=== PATIENT | male | born 1960 | race Caucasian/White ===

== ENCOUNTER 2023-11-28 23:04 | Inpatient (IN) | payer BC, MEDICARE, SELFPAY ==
[2023-11-28 20:05] VITALS: BP 135/87
[2023-11-28 20:19] LABS: % Basophils 0.5 % (0-2); % Eosinophils 1.7 % (0-6); % Immature Granulocytes 0.3 % (0-0.5); % Lymphocytes 18.3 % (20.5-51.1); % Neutrophils 71.2 % (42.2-75.2); Absolute Eosinophils 0.1 10^3/uL (0-0.7); Absolute Lymphocytes 1.4 10^3/uL (1.2-3.4); Absolute Monocytes 0.6 10^3/uL (0.1-0.6); Absolute Neutrophils 5.5 10^3/uL (1.4-6.5); Hematocrit 46.6 % (39.0-52.0); Hemoglobin 16.2 g/dL (13.0-18.0); Mean Corp Hgb Conc. 34.8 g/dL (33.0-37.0); Mean Corpuscular Hgb 28.9 pg (27.0-31.0); Mean Corpuscular Volume 83.2 fL (80.0-94.0); Mean Platelet Volume 9.2 fL (7.4-10.4); Nucleated Red Blood Cells % 0 % (-); Platelet Count 191 10^3/uL (130-400); Red Cell Dist. Width 13.2 % (11.5-14.5); White Blood Cell Count 7.7 10^3/uL (4.8-10.8)
[2023-11-28 20:32] LABS: INR 1.05; PT 13.5 Sec (11.4-14.6)
[2023-11-28 20:40] LABS: ALT (SGPT) 11 U/L (0-50); AST (SGOT) 28 U/L (17-59); Albumin 4.7 g/dl (3.5-5.0); Alkaline Phosphatase 48 U/L (38-126); Blood Urea Nitrogen 22 mg/dl (9-20); Calcium 9.9 mg/dl (8.4-10.2); Carbon Dioxide 27 mmol/L (22-30); Chloride 103 mmol/L (98-107); Glucose 111 mg/dl (70-99); Sodium 142 mmol/L (135-145); Total Bilirubin 1.6 mg/dl (0.2-1.3); Total Protein 7.4 g/dl (6.3-8.2); eGFR > 60.00
--- NOTE | 2023-11-28 20:44 | ED.GENMED ---
History of Present Illness
General
Chief Complaint: Chest Pain
Source: patient
Time Seen by Provider: 11/28/23 20:34
History of Present Illness
History of Present Illness:
63yoM with a history of hypertension and Parkinson's disease presenting for evaluation of chest pain. Symptoms initially began 2 days ago while he was on the treadmill. Patient reports a 'tremendous burning pain' in the center of his chest which
radiates up into the neck. Symptoms are associated with dyspnea and mild diaphoresis. Symptoms resolved about 10 minutes after activity is stopped. He has been on the treadmill each day since and has had recurrent pain each time. Patient was
having chest discomfort just walking up the steps and while in the shower today which prompted him to come to the ED. He is currently asymptomatic. Patient's father has a history of coronary artery disease and underwent CABG in his 50s.
Phy Exam
General Physical Exam
General Presentation: well appearing and no apparent distress
General age: appears stated age
General Skin: warm and dry
General Habitus: normal
General Mental: alert
Cardiovascular Exam
Cardiovascular Exam: regular rate/rhythm, no edema and normal peripheral pulses (2+ radial pulses bilaterally)
Pulmonary Exam
Pulmonary Exam: lungs clear, no respiratory distress, no crackles and no wheezing
[place] Coma Scale
Eye Opening: Spontaneous
Verbal Response: Oriented
Motor Response: Obeys Commands
GCS Total Score: 15
Skin Exam
Skin Exam: normal color and warm/dry
Psychiatric Exam
Psychiatric Exam: normal mood/affect
Scores
Heart Score for Chest Pain Patients
STEMI patient?: Not applicable
Course
Orders/Labs/Results
Orders:
Orders
11/28/23 19:54
EKG [Electrocardiogram (*1)] Urgent
Reason for Study: Chest Pain
11/28/23 20:12
Complete Blood Count/With Diff Urgent
Comprehensive Metabolic Panel Urgent
Prothrombin Time Urgent
Troponin I Urgent
11/28/23 20:43
CR Chest - 2 Views Urgent
Comment:
Reason For Exam: CP
11/28/23 22:25
Admit/Transfer Patient As Directed
Co-Sign Provider:
Level of Care: Inpatient admission
Assign to:: Telemetry
Physician / Group: Htay
Diagnosis: Chest Pain
Reason for Telemetry: Chest Pain syndromes
Date to Stop Telemetry: 11/30/23
Time to Stop Telemetry: 11:00
Reason for Hospitalization: heparin drip, chest pain work up
Expected length of stay greater than two midnights?: Yes
ELOS- Estimated Length of Stay in days: 2
I certify the patient meets the requirements for IP care: Yes
PRN Pain Medication Management As Directed
May give lesser potent ordered pain med per pt: Yes
preference::
Protocol:: Medication orders for pain may be administered in a
manner that supports deferring to patient preference
when the pt is:
- Requesting an ordered lesser potent pain medication.
Least to most potent pain medications are defined
as: acetaminophen < NSAID < tramadol < opioids
(morphine, oxycodone, hydromorphone).
- Requesting a lesser dose of the same medication IF
ORDERED.
- Requesting a less intrusive route of administration
if both routes are prescribed by the provider (PO <
IV).
11/28/23 22:26
Code Status As Directed
Resuscitation Status: Full Code
11/28/23 22:43
Aspirin Chewable [Low Strength Aspirin] 324 mg PO NOW STA
11/28/23 22:51
Heparin Protocol- PTT Orders As Directed
PTT per Heparin protocol: -Obtain CBC and baseline PTT - if not already collected.
-Obtain PTT 6 hours from start of infusion. Then, every 6 hours until 2 consecutive
PTT's are therapeutic. Then, PTT Daily.
-With each rate change, obtain PTT every 6 hours until 2 consecutive PTT's are
therapeutic. Then, PTT Daily.
Notify MD As Directed
Notify physician if: PTT is greater than or equal to 200.
11/28/23 22:55
Heparin 4,000 units IV NOW STA
11/28/23 22:59
PRN Pain Medication Management As Directed
May give lesser potent ordered pain med per pt: Yes
preference::
Protocol:: Medication orders for pain may be administered in a
manner that supports deferring to patient preference
when the pt is:
- Requesting an ordered lesser potent pain medication.
Least to most potent pain medications are defined
as: acetaminophen < NSAID < tramadol < opioids
(morphine, oxycodone, hydromorphone).
- Requesting a lesser dose of the same medication IF
ORDERED.
- Requesting a less intrusive route of administration
if both routes are prescribed by the provider (PO <
IV).
11/28/23 23:00
Flush (0.9% Sodium Chloride) [Flush (Nss)] See Dose Instructions IV PER PROTOCOL
Heparin 65871 Units/250 ml 25,000 units in 250 ml IV PER PROTOCOL
Weight to be used for heparin protocol in kilograms (kg):: 99.4
Protocol:: Cardiac Tx/Acute Coronary
PTT Goal Range to be used:: PTT 73 to 111 seconds
Order type:: Initial
INITIAL Infusion Dose (UNITS/KG/hr) & then follow protocol:: 12 units/kg/hr
Infusion Dose in UNITS/hr & then follow protocol (UNITS/hr):: 1,000
INFUSION RATE in mL/hr & then follow protocol (mL/hr):: 10
PTT less than or equal to 64 seconds:: Increase rate by 200 units/hr (+ 2 mL/hr)
PTT 64.1 to 72.9 seconds:: Increase rate by 100 units/hr (+ 1 mL/hr)
PTT 73 to 111 seconds:: Target Range. No change in rate.
PTT 111.1 to 130.9 seconds:: Decrease rate by 100 units/hr (- 1 mL/hr)
PTT 131 to 199.9 seconds:: HOLD for 1 hr. Then decrease rate by 200 units/hr (- 2 mL/hr)
PTT greater than or equal to 200 seconds:: HOLD for 2 hrs & Notify Provider. Then decrease by 200 units/hr (-
2 mL/hr)
Lab follow-up:: Each change, PTT q6h until 2 consecutive are therapeutic. Then PTT
daily.
11/28/23 23:15
PTT Urgent
Comment: Obtain baseline before beginning heparin infusion if not already collected
11/28/23 23:22
Echo 2D MMode Color/Doppler Routine
Reason for Study: chest pain
CARDIOLOGY CONSULT Routine
Consulting Provider: Hakan Leo
Was physician already notified: No
Reason for consult: Chest Pain
Consult Notification Routine
Specialty to Notify: Cardiology
Activity As Directed
Activity Level: Out of Bed-Early Mobility
INT (Intravenous Needle Therapy) As Directed
Comment: maintain peripheral IV access
Intake/ Output As Directed
Frequency: Per unit guidelines
Sequential Compression Device [Pneumatic Compression Sleeves] As Directed
Type: Knee high
Vital Signs As Directed
Frequency: q4h
Weight As Directed
Frequency: Daily
O2 Therapy [RESP] Routine
Nasal Cannula Liter Flow: 2 LPM
Titrate/Wean O2 to maintain O2 sat greater than (%): 90
Special Instructions: 2 liters/minute as needed for pulse oximetry less than 90%
Pulse Ox/spot Check [RESP] Routine
Quantity: 1
Special Instructions: on admission and then every shift if on oxygen
DX Deep Vein Thrombosis Video Routine
11/29/23 02:00
Electrocardiogram (*1) Q6H
Reason for Study: Chest Pain
Comment: at admission and Q6H for total of 3, to be done with each troponin
Troponin I Q6H
11/29/23 Breakfast
NPO
Allow oral meds: Yes
Allow clear liquids: 4hrs prior to procedure
Comment: may have unrestricted clear liquid up to 4 hrs prior to scheduled procedure
Basic Metabolic Panel IN AM
Cardiovascular Evaluation IN AM
Complete Blood Count/No Diff IN AM
Glycohemoglobin (HgbA1c) IN AM
11/29/23 08:00
Electrocardiogram (*1) Q6H
Reason for Study: Chest Pain
Comment: at admission and Q6H for total of 3, to be done with each troponin
Troponin I Q6H
Aspirin Chewable [Low Strength Aspirin] 81 mg PO DAILY
Carbidopa/Levodopa [Sinemet 25-100] 2 tablet PO BID@0800,1200
Entacapone [Comtan] 200 mg PO QID
Rasagiline Mesylate 1 mg PO DAILY
Sertraline HCl [Zoloft] 50 mg PO DAILY
11/29/23 16:00
Carbidopa/Levodopa [Sinemet 25-100] 1 tablet PO BID@1600,2000
11/29/23 18:00
Atorvastatin [Lipitor] 40 mg PO QPM
11/29/23 22:00
Amlodipine [Norvasc] 5 mg PO HS
Zolpidem Tartrate [Ambien] 5 mg PO HS
11/30/23 06:00
Complete Blood Count/No Diff Q2D
Comment: Notify if platelet count is <130,000 or decreases by 50% from baseline
11/30/23 11:00
DC Protocol for Telemetry ONCE
12/02/23 06:00
Complete Blood Count/No Diff Q2D
Comment: Notify if platelet count is <130,000 or decreases by 50% from baseline
12/04/23 06:00
Complete Blood Count/No Diff Q2D
Comment: Notify MD if platelet count is <130,000 or decreases by 50% from baseline
12/06/23 06:00
Complete Blood Count/No Diff Q2D
Comment: Notify MD if platelet count is <130,000 or decreases by 50% from baseline
12/08/23 06:00
Complete Blood Count/No Diff Q2D
Comment: Notify MD if platelet count is <130,000 or decreases by 50% from baseline
12/10/23 06:00
Complete Blood Count/No Diff Q2D
Comment: Notify MD if platelet count is <130,000 or decreases by 50% from baseline
12/12/23 06:00
Complete Blood Count/No Diff Q2D
Comment: Notify MD if platelet count is <130,000 or decreases by 50% from baseline
12/14/23 06:00
Complete Blood Count/No Diff Q2D
Comment: Notify MD if platelet count is <130,000 or decreases by 50% from baseline
Abnormal Lab Results
11/28/23
20:12
Lymphocytes % 18.3 L %
(20.5-51.1)
BUN 22 H mg/dl
(9-20)
Glucose 111 H mg/dl
(70-99)
Total Bilirubin 1.6 H mg/dl
(0.2-1.3)
11/28/23 20:12
11/28/23 20:12
Vital Signs
Initial and Last Documented VS:
Initial Vital Signs
Temp Pulse Resp BP Pulse Ox
98.2 F 91 18 135/87 95
11/28/23 20:05 11/28/23 20:05 11/28/23 20:05 11/28/23 20:05 11/28/23 20:05
Last Documented Vital Signs
Temp Pulse Resp BP Pulse Ox
97.8 F 82 20 161/92 98
11/29/23 00:03 11/29/23 00:03 11/29/23 00:03 11/29/23 00:03 11/29/23 00:03
MDM/Problems Addressed
MDM/Problems Addressed:
63yoM here with exertional chest pain x 2 days. Patient now unable to ambulate without symptoms. Associated with dyspnea and mild diaphoresis. Pain radiates to neck. No chest pain on initial exam. History of obesity, HTN, and family history of
heart disease. He is afebrile and hemodynamically stable. He is well-appearing in no acute distress. Exam reassuring. Differential diagnosis includes but is not limited to: Stable angina, ACS, pericarditis, GERD
Initial ED plan: Check cardiac labs, EKG, and chest x-ray.
*EKG
Interpreted by ED Provider?: Yes
EKG Intrepretation Date: 11/29/23
Heart Rate: 82
Rate: normal
Rhythm: sinus
[place]: normal axis
Interval: normal interval
QRS Pattern: normal QRS
Ischemia: other (Nonspecific T wave changes)
*Critical Care Note
Total Time (30-74mins, 75-104mins- exclusive of procedures): Not Applicable
Update Note
Update Note:
EKG shows normal sinus rhythm with nonspecific T wave changes. Troponin within normal limits. Chest x-ray is normal. Presentation concerning for cardiac chest pain. He was admitted for further evaluation and management.
ED Attending Note
-
Portions of this chart may have been created with voice recognition software.� Occasional wrong word or��sound alike� substitutions may have occurred due to the inherent limitations of voice recognition software.
Discharge Plan
Departure
Patient Disposition: Admit
Date of Disposition: 11/28/23
Time of Disposition: 22:30
Presentation/result/management discussed w/ accepting MD/DO: Hospitalist
Discharge Problem:
Chest pain
Interventions
Interventions:
*Risk Screen - Suicide Last Done: 11/28/23 20:05
*General Assessment Last Done: 11/28/23 20:05
*Neglect/Abuse Screening Last Done: 11/28/23 22:00
*Nursing Disposition Last Done: 11/28/23 22:00
EP-Jorzgp-Oveuufpqjc Assessment Last Done: 11/28/23 22:00
ED- Cardiac Assessment Last Done: 11/28/23 22:00
Discharge Date and Time
Discharge Date/Time: 11/29/23 00:06
[2023-11-28 20:45] LABS: Troponin I < 0.012 ng/ml
[2023-11-28 21:58] VITALS: BP 146/85
--- NOTE | 2023-11-28 22:22 | HPS.HSE ---
Addendum entered and electronically signed by Ruslan Stout MD 11/28/23 23:17:
I saw and examined the patient.
The [employer] or PA's note was reviewed and I agree with the note.
Comment: 63M Obesity HX Parkinson's, HTN, POS FHX of early MO pw exertional CP for last x 2 days with radiation to the neck. POS associated with SOB and diaphoresis.Umbulate without chest discomfort. Currently CP free.
EKG has nonspecific T wave changes and troponin WNL.
Impression :
New onset exertional angina
[place] unless proven otherwise
- Case dw CBC Card
- Full dose ASA then daily babay
- Heprin with bolus then gtt
- Keep NPO
- CBC card to evaualte for cath in AM
Original Note:
Family Physician
-
Family Physician: Joseph Glass
Chief Complaint
-
Chest Pain
History of Present Illness
This is a 63 yo male with a hx of HTN and Parkinson's disease who presents with exertional chest pain. He first noticed his symptoms 3 days ago when he was on the treadmill. About 5 minutes in he developed chest pain with associated diaphoresis,
dyspnea, and palpitations. He describes the pain as a burning sensation diffusely over his chest and epigastrium that radiates up the back of his neck. The symptoms subside after 15 minutes of rest. He had another similar episode yesterday while on
the treadmill again. Today his symptoms were triggered by a smaller amount of exertion and he developed chest pain with walking and climbing stairs. He received a stress test about 11 years ago that was unremarkable but hasn't got any cardiac workup
since. His father had a heart attack and CABG in his 50s. He is a former smoker (quit in his 20s). He denies dizziness or abdominal pain.
Medical History
Past Medical History
Past Medical History: Reports Other
Additional Past Medical History:
Parkinson's Disease
Essential Hypertension
Anxiety/Depression
Past Surgical History: Reports None
Social History
Tobacco: Former Smoker (Quit in his 20s)
Family History
Family History: CAD (Father)
Allergies / Home Medications
Allergies reflects when Allergies were last updated in [facility].
Home Medications with original date entered in [facility]
Allergy/Medication List:
Allergies
Allergy/AdvReac Type Severity Reaction Status Date / Time
No Known Allergies Allergy Verified 11/28/23 20:09
Home Medications
amlodipine 5 mg-valsartan 160 mg tablet 1 tab PO HS 11/28/23
carbidopa 25 mg-levodopa 100 mg tablet 1 tab PO BID@1600,2000 11/28/23
carbidopa 25 mg-levodopa 100 mg tablet 2 tab PO BID@0800,1200 11/28/23
entacapone 200 mg tablet 200 mg PO QID 11/28/23
rasagiline 1 mg tablet 1 mg PO DAILY 11/28/23
sertraline 50 mg tablet 50 mg PO DAILY 11/28/23
sildenafil 100 mg tablet 100 mg PO DAILYPRN PRN ED 11/28/23
zolpidem 5 mg tablet 5 mg PO HS 11/28/23
Review of Systems
-
A 12 point ROS was completed and negative except as noted: Yes
Constitutional: Denies Fever or Chills
Respiratory: Reports Trouble Breathing; Denies Cough
Cardiac: Reports See HPI
Abdomen/GI: Denies Abdominal Pain, Nausea or Vomiting
Physical Exam
Vital Signs
Vital Signs
Temp Pulse Resp BP Pulse Ox
98.2 F 91 18 135/87 95
11/28/23 20:05 11/28/23 20:05 11/28/23 20:05 11/28/23 20:05 11/28/23 20:05
Physical Exam
General: Comfortable and Conversant
HEENT: Anicteric and Moist mucous membranes
Respiratory: Clear and Non Labored Respirations
Cardiac: S1/S2 and Regular Rhythm; No Murmur
GI: Soft, Non Tender and Other (Protuberant)
Rectal: Deferred by Provider
Musculoskeletal: No Clubbing, No Cyanosis and No Edema
Skin: Warm and Dry
Neuro: Awake, Alert, Oriented and Nonfocal/grossly intact
Psych: Calm
Laboratory Results
-
11/28/23 20:12
11/28/23 20:12
Laboratory Results
PT 13.5 Sec (11.4-14.6) 11/28/23 20:12
INR 1.05 11/28/23 20:12
Total Bilirubin 1.6 mg/dl (0.2-1.3) H 11/28/23 20:12
AST 28 U/L (17-59) 11/28/23 20:12
ALT 11 U/L (0-50) 11/28/23 20:12
Alkaline Phosphatase 48 U/L (38-126) 11/28/23 20:12
Troponin I < 0.012 ng/ml 11/28/23 20:12
Data Reviewed
-
Medical Tests (Nuc Med, Echo, EKG etc): Report Reviewed by me
Lab Data: Labs Reviewed by me
Impression/Plan
-
Exertional Chest Pain, concerning for new/unstable angina - Currently chest pain free
-Consult Cardiology
-Start aspirin
-Start heparin drip
-Trend troponin
-NPO after midnight for possible cardiac work-up in AM
Parkinson's Disease
-Continue carbidopa/levodopa, entacapone, and rasagiline
Essential Hypertension
-Continue amlodipine and valsartan
Anxiety/Depression/Insomnia
-Continue sertraline and Ambien
DVT proph: Heparin Drip
Code Status: Full Code
[2023-11-28 22:50] VITALS: BMI 33.3
[2023-11-28 23:00] VITALS: BP 124/69
[2023-11-28] MEDS: LOW STRENGTH ASPIRIN 324 MG PO (23:21)
[2023-11-28] MEDS: HEPARIN 4000 UNITS IV (23:24)
[2023-11-28] MEDS: HEPARIN 25000 UNITS/250 ML IV (23:26)
[2023-11-28 23:32] LABS: APTT 31.6 Sec (23.4-35.0)
[2023-11-29] VITALS (13 sets, daily range): BP systolic 110–161; BP diastolic 71–114; BMI 33.6; BMI 33.5
--- NOTE | 2023-11-29 03:28 | DOWNTIME ---
There was a [employer] Downtime on 11/29/2023 from 0100 to 11/29/2023 at 0300. Downtime documentation of patient's care, including medication administrations, has been reconciled in the electronic record per guidelines. Refer to the
patient's paper chart under the miscellaneous tab to see printed paper medication records and downtime forms.
[2023-11-29 03:34] LABS: Troponin I 0.022 ng/ml
--- NOTE | 2023-11-29 05:12 | PTCARENOTE ---
Pt admitted from ED, aaox3. No c/o pain at this time. VSS, afebrile. Heparin gtt infusing without issues. Pt with NSR on tele. Lungs clear, on room air. No N/V or stools. Voiding to urinal. Pt remains NPO at this time. Awaiting further plan.
[2023-11-29 06:19] LABS: Hematocrit 45.4 % (39.0-52.0); Hemoglobin 15.8 g/dL (13.0-18.0); Mean Corp Hgb Conc. 34.8 g/dL (33.0-37.0); Mean Corpuscular Hgb 29.1 pg (27.0-31.0); Mean Corpuscular Volume 83.6 fL (80.0-94.0); Mean Platelet Volume 10.1 fL (7.4-10.4); Platelet Count 184 10^3/uL (130-400); Red Blood Cell Count 5.43 10^6/uL (4.70-6.10); Red Cell Dist. Width 13.1 % (11.5-14.5)
[2023-11-29 06:25] LABS: APTT 47.7 Sec (23.4-35.0)
[2023-11-29 06:47] LABS: Blood Urea Nitrogen 20 mg/dl (9-20); Calcium 9.2 mg/dl (8.4-10.2); Carbon Dioxide 25 mmol/L (22-30); Chloride 104 mmol/L (98-107); Estimated Creatinine Clearance 107 ml/min; Glucose 115 mg/dl (70-99); HDL Cholesterol 27 mg/dl; LDL Cholesterol, Calculated 112 mg/dl; Sodium 142 mmol/L (135-145); Total Cholesterol 175 mg/dl (50-199); Triglyceride 180 mg/dl (10-149); Very Low Density Lipoprotein 36 mg/dl (0-30); eGFR > 60.00
[2023-11-29] MEDS: SINEMET 25-100 2 TABLET PO ×2 (07:55→14:18)
[2023-11-29] MEDS: COMTAN 200 MG PO ×4 (07:55→23:05)
[2023-11-29] MEDS: RASAGILINE MESYLATE 1 MG PO (07:55)
[2023-11-29] MEDS: LOW STRENGTH ASPIRIN 81 MG PO (07:56)
[2023-11-29] MEDS: ZOLOFT 50 MG PO (07:56)
[2023-11-29 08:14] LABS: Troponin I 0.045 ng/ml
[2023-11-29 08:39] LABS: Glycohemoglobin (HgbA1c) 6.5 % (4.0-5.6)
--- NOTE | 2023-11-29 09:02 | CON.CAR ---
Consultation
Consultation Request
Date/Time Consultation Requested: 11/29/2023
Date/Time Consultation Performed: 11/29/2023
Requesting Provider: Dr. Stout
Performing Provider: Dr. Leo
Reason for Consultation: Chest pain
Medical History
-
Chief Complaint: Chest pain
History of Present Illness:
63-year-old male with hypertension, hyperlipidemia, obesity, former smoking history (1 pack/day x 10 years; quit in 1987), family history of coronary artery disease (father who had MIs and underwent subsequent CABG) presenting with chest pain highly
consistent with angina. Over the past month, the patient began going to the gym to try to manage his cholesterol that was mildly elevated with diet and exercise. However, over the past 3 days, he began experiencing midsternal chest pain when he
started to walk on the treadmill causing him to stop. The symptoms lasted for as long as he exerted himself, and subsided approximately 15 minutes after he was done trying to exercise. There was radiation to his neck and associated diaphoresis
dyspnea. He denies palpitations, syncopal events, or lower extremity swelling. Patient was started on a heparin drip in the ER, and his troponins are mildly elevated this a.m., consistent with an NSTEMI.
Past Medical History
Past Medical History: HTN and Hypercholesterolemia
Past Surgical History: None
Social History
Tobacco: Former Smoker (10 pack years; quit 1987)
Alcohol: Occasional
Drug: None
Personal:
Living: With Family
Family History
Family History: CAD (Father)
Allergies / Home Medications
Allergy/AdvReac Type Severity Reaction Status Date / Time
No Known Allergies Allergy Verified 11/28/23 20:09
�Medication �Instructions �Recorded �Confirmed �Type
amlodipine 5 mg-valsartan 160 mg 1 tab PO HS 11/28/23 11/28/23 History
tablet
carbidopa 25 mg-levodopa 100 mg 1 tab PO BID@1600,199911/28/23 11/28/23 History
tablet
carbidopa 25 mg-levodopa 100 mg 2 tab PO BID@0800,1200 11/28/23 11/28/23 History
tablet
entacapone 200 mg tablet 200 mg PO QID 11/28/23 11/28/23 History
rasagiline 1 mg tablet 1 mg PO DAILY 11/28/23 11/28/23 History
sertraline 50 mg tablet 50 mg PO DAILY 11/28/23 11/28/23 History
sildenafil 100 mg tablet 100 mg PO DAILYPRN PRN ED 11/28/23 11/28/23 History
zolpidem 5 mg tablet 5 mg PO HS 11/28/23 11/28/23 History
Review of Systems
-
History Source: Patient
All other systems: Negative unless noted
Physical Exam
Vital Signs
Temp Pulse Resp BP Pulse Ox
97.7 F 74 16 147/92 96
11/29/23 07:15 11/29/23 07:15 11/29/23 07:15 11/29/23 07:15 11/29/23 07:15
Lab Results
11/29/23 06:05
11/29/23 06:05
Troponin I 0.045 ng/ml H* D 11/29/23 07:40
Physical Exam
General: No Apparent Distress and Comfortable
HEENT: Normocephalic and Anicteric
Respiratory: Clear
Cardiac: S1/S2 and Regular Rhythm
Breast: N/A
GI: Soft
Rectal: Deferred by Provider
Musculoskeletal: No Clubbing, No Cyanosis and No Edema
Skin: Warm and Dry
Neuro: AO x 3
Psych: Calm
Impression / Plan
-
63-year-old male with hypertension, hyperlipidemia, obesity, former smoking history (1 pack/day x 10 years; quit in 1987), family history of coronary artery disease (father who had MIs and underwent subsequent CABG) presenting with chest pain highly
consistent with angina. Over the past month, the patient began going to the gym to try to manage his cholesterol that was mildly elevated with diet and exercise. However, over the past 3 days, he began experiencing midsternal chest pain when he
started to walk on the treadmill causing him to stop. The symptoms lasted for as long as he exerted himself, and subsided approximately 15 minutes after he was done trying to exercise. There was radiation to his neck and associated diaphoresis
dyspnea. He denies palpitations, syncopal events, or lower extremity swelling. Patient was started on a heparin drip in the ER, and his troponins are mildly elevated this a.m., consistent with an NSTEMI.
NSTEMI:
-Cardiac troponins were negative on first set, but have now increased to 0.045.
-Continue heparin drip.
-Given full-dose aspirin in the ER; continue 81 mg daily.
-Started on atorvastatin 40 mg in the ER; continue.
-Patient will undergo cardiac catheterization today; keep NPO.
-Echocardiogram today.
-Will start beta-florentino.
Hypertension:
-Currently controlled
-Continue current doses of amlodipine and losartan.
Hyperlipidemia:
-Started on statin as above.
Family history of CAD:
-In father who had multiple MIs and subsequently underwent CABG.
-Will undergo cardiac catheterization as above.
Obesity:
-Weight loss and regular exercise recommended.
Data Reviewed
-
EKG: Report Reviewed by me (Sinus rhythm)
Labs: Labs Reviewed by me
[2023-11-29] MEDS: TOPROL XL 25 MG PO (11:02)
--- NOTE | 2023-11-29 11:17 | W.PN.HOSP.TC ---
Today's Communication/Plan
-
F/W cardiology recommendations, cath today
Assessment / Plan
Assessment / Plan
Physical Exam
General: Comfortable and Conversant
HEENT: Anicteric and Moist mucous membranes
Respiratory: Clear and Non Labored Respirations
Cardiac: S1/S2
GI: Soft, Non Tender and Other (Protuberant)
Musculoskeletal: No Clubbing, No Cyanosis and No Edema
Skin: Warm and Dry
Neuro: Awake, Alert, Oriented, he followed commands.
Osych: calm.
# Exertional Chest Pain, concerning for new/unstable angina
Mild elevation in troponin. Family history of CAD
-c/w aspirin, heparin drip, low dose BB
- Started on statin, LDL 112, TG 180, Total cholesterol 175, hDL 27
- HGB A1C 6.5
-NPO for cath today
Echo showed LVEF 65-70% with no regional wall motion abnormalities.
Appreciate cardiology help
# Obesity BMI 33 with pre-diabetic stage
Parkinson's Disease
-Continue carbidopa/levodopa, entacapone, and rasagiline
Essential Hypertension
-Continue amlodipine and valsartan
Anxiety/Depression/Insomnia
-Continue sertraline and Ambien
DVT proph: Heparin Drip
Code Status: Full Code
Total time spent to see the patient, examine the patient on the floor, review data and lab results, discuss treatment plan with patient, nursing staff around 55 minutes
Anticipated Discharge: 24 - 48 hours
Subjective/Interval History
-
Date of Service: November 29, 2023
No chest pain
No sob
Objective Data
-
Labs:
Laboratory Results
11/28/23 11/29/23 11/29/23
23:15 06:05 12:40
WBC 7.0
Hgb 15.8
Hct 45.4
Plt Count 184
APTT 31.6 47.7 H Pending
Sodium 142
Potassium 4.0
Chloride 104
Carbon Dioxide 25
BUN 20
Creatinine 0.8
Glucose 115 H
Calcium 9.2
Vital Signs:
Vital Signs
Temp Pulse Resp BP Pulse Ox
97.7 F 74 16 147/92 96
11/29/23 07:15 11/29/23 07:15 11/29/23 07:15 11/29/23 07:15 11/29/23 07:15
I&O
11/28/23 11/29/23 11/30/23
06:59 06:59 06:59
Intake Total 0 / 0
Output Total 250 / 250
Balance -250 / -250
[2023-11-29 13:10] LABS: ACT-LR - POC 161 Seconds (116-155)
--- NOTE | 2023-11-29 14:00 | PTCARENOTE ---
Rec'd report from Leonard in the lab support tech; Rec'd pt AAOx3 w/no c/o CP or SOB post cardiac cath. Pt w/R radial band in place w/SpO2 of 96% on RA; no signs or symptoms of bleeding or hematoma. Pt's VS stable on arrival to the floor w/HR in the 70's &
BP 125/85. Discussed activity restrictions w/pt & spouse for R wrist & bedrest until 1530. Pt given CAD book. Pt w/call dillon within reach & plan of care ongoing.
[2023-11-29 14:03] LABS: Troponin I 0.033 ng/ml
--- NOTE | 2023-11-29 14:46 | ITS.CL.ANGIO ---
Donor Processor - Angioplasty
Angioplasty
Procedure Report:
CARDIAC CATHETERIZATION REPORT
Date of Procedure: 11/29/2023
Referring: Hakan Leo M.D.
INDICATION: Non-ST elevation myocardial infarction.
PROCEDURE:
1. Left heart catheterization.
2. Coronary angiography.
3. Balloon assisted tracking through the right radial artery loop for guide placement.
4. Successful PCI of the proximal RCA.
5. Successful IVUS of the proximal/ostial RCA.
ACCESS:
6 Sur[place]amese right radial artery.
CATHETERS:
1. 5 [place]inamese JR4.
2. 5 [place]inamese JL 3.5.
3. 6 Surinamese JR4 guiding catheter.
HEMODYNAMIC DATA
Weight (kg): 99.8
AO (s/d/x, mmHg): 101/75/89
LV (s/x mmHg): 102/15
LEFT VENTRICULOGRAPHY: Not performed.
CORONARY ANGIOGRAPHY
Dominance: Right.
Left Main: Normal size, bifurcating vessel. There is no coronary artery disease.
LAD: Normal size vessel giving rise to 2 significant diagonals. There are minor luminal irregularities.
Ramus: Congenitally absent.
Circumflex: Large size, nondominant vessel giving rise to 3 obtuse marginals. OM1 arises very high off of the circumflex. OM 2 is a medium size vessel with a 40% lesion in its midsection. OM 3 is a fairly large vessel supplying the majority of
the inferolateral wall. There are minor luminal irregularities.
RCA: Large size, dominant vessel. There is a critical, 90-95% lesion in the proximal vessel immediately before the artery turns caudal with distal ELISABETH II flow.
INTERVENTION(S)
1. Successful balloon assisted tracking to overcome radial artery loop and allow for interventional guided placement.
2. Successful PCI of the 90% proximal RCA lesion (Medtronic [place]al [place] 3.5 x 18 SALBADOR, postdilated with a 3.5 NC balloon) with reduction in stenosis to 0%, restoring ELISABETH-3 flow.
3. Successful IVUS of the proximal half of the stent as well as the proximal and ostial right coronary artery.
Narrative:
The decision was made to proceed with percutaneous coronary intervention. The diagnostic catheter was removed over a wire and a 6Fr JR4 guiding catheter was advanced into the radial artery. The patient had a known radial artery loop which had
allowed for passage of 5 Surinamese diagnostic catheters, but would not permit the passage of a 6 Surinamese guiding catheter without significant pain and high risk for radial and brachial artery dissection. A 0.035 quick cross microcatheter was advanced
over the J-wire and into the subclavian artery, well beyond the radial artery loop. The J-wire was withdrawn and a power turn flex wire was advanced through the quick cross and into the subclavian artery. The quick cross microcatheter was removed
and a 2.0 x 12 semicompliant balloon was advanced over the coronary wire to the edge of the guiding catheter. The balloon was inflated to 4 tyler while straddling the origin of the catheter. The catheter was then advanced with the balloon inflated
in a balloon assisted tracking (BAT) technique to the aortic root and seated in the right coronary artery.
Additional heparin was given and a Power Turn Flex wire was advanced into the distal RCA. The 90-95% proximal RCA lesion was predilated with a 2.0 x 12 semi-compliant balloon to 12 tyler. Given the initial difficulty of the balloon to cross the
lesion, I was concerned that expansion would be an adequate given the relative size of the vessel. The 2.0 x 12 semicompliant balloon was withdrawn and a 3.0 x 15 noncompliant balloon was advanced. The lesion was dilated again to 14 tyler. There
was excellent balloon expansion. The noncompliant balloon was removed and a Medtronic [place] 3.5 x 18 drug-eluting stent was advanced. The stent was deployed at 12 atmospheres. The stent balloon was removed. A 3.5 x 12 noncompliant balloon
was advanced into the stent and the stent was postdilated to 15 atmospheres. Angiography was performed in orthogonal views, confirming good stent expansion and an excellent angiographic result.
Post PCI angiography did reveal an area of lucency immediately proximal to the stent. It was unclear if this was new pleating due to PCI or the positioning of the guide and guidewire. The decision was made to perform intracoronary imaging. The
noncompliant balloon was withdrawn and an IVUS catheter was advanced through the guiding catheter and into the ostium of the artery. Ring down was performed once the imaging crystal was no longer inside of the guiding catheter. The IVUS catheter was
advanced into the proximal RCA, to the midpoint of the stent. Intravascular ultrasound was performed in a retrograde fashion using a slow pullback. Intracoronary imaging demonstrated excellent stent expansion and apposition with no evidence of
dissection or bleeding of the proximal right coronary artery. The IVUS catheter was withdrawn. Final angiography showed good stent expansion and an excellent angiographic result.
The coronary wire was withdrawn and the guide was disengaged from the artery. The catheter was removed over a standard J-wire.
Closure Device: Vascular band.
Radiation (mGy): 882.74
DAP (cm2.Gy): 71.5463
Fluoroscopy time (minutes): 13.1
Sedation time (minutes): 58
CONCLUSIONS
1. Severe radial artery loop requiring balloon assisted tracking for the advancement of a 6 Surinamese interventional guide catheter.
2. Right dominant circulation with luminal irregularities in the LAD, a 40% lesion in the medium sized OM 2 and a critical, 90-95% lesion in the proximal RCA with ELISABETH II flow, status post successful PCI (Medtronic [place] 3.5 x 18 SALBADOR,
postdilated with a 3.5 NC balloon) with reduction in stenosis to 0%, restoring ELISABETH-3 flow.
3. Top normal to mildly elevated filling pressures (LVEDP = 15 mmHg at 99.8 kg).
4. Parkinson's disease.
RECOMMENDATIONS:
1. Expectant management after cardiac catheterization via right radial approach.
2. Limited weight bearing on the right wrist for one week.
3. Dual antiplatelet therapy with aspirin and ticagrelor for at least 12 months, followed by aspirin indefinitely.
4. Aggressive secondary prevention with high-dose, high potency statin. Goal LDL <55.
5. Guideline directed medical therapy as hemodynamics tolerate.
6. Referral to cardiac rehab.
Copy to: Joseph Glass D.O., Hakan Leo M.D.
Shan Casanova DO, FACC, FACP
[2023-11-29 15:00] LABS: ACT-LR - POC > 397 Seconds (116-155)
--- NOTE | 2023-11-29 15:24 | CM ---
Reviewed chart. Met with and Mrs. Murguia to review discharge plans. He states prior to admission he resides with is spouse in a two story home without any steps to enter. He states he has ten steps to get to bedroom/full bathroom. He states
he has a powder room on the first floor. He states prior to admission he sometimes ambulates with a single point cane. He states he is independent with adl's. He states he is currently covered under his commercial plan for his medications until
July when he officially retires. Telephone call to [employer], (([phone]) to check on coverage for Brilinta 90 mg po bid. His co-pay would be $15.00 a month and $30.00 for three month supply via mail order. He has commercial insurance so
he can use the $5.00 coupon. Placed the $5.00 coupon in his red discharge folder. Telephone call to [facility] to check if they have Brilinta 90 mg po bid in stock. [facility] states they have it in stock. Updated N.P. regarding
coverage. Medical work-up in progress. The discharge plan is to return home with his spouse when medically stable.
[2023-11-29] MEDS: LIPITOR 40 MG PO (18:28)
[2023-11-29] MEDS: SINEMET 25-100 1 TABLET PO ×2 (18:28→22:48)
[2023-11-29] MEDS: BRILINTA 90 MG PO (20:25)
[2023-11-29] MEDS: TYLENOL 650 MG PO (20:25)
[2023-11-29] MEDS: NORVASC 5 MG PO (22:47)
[2023-11-29] MEDS: DIOVAN 160 MG PO (22:47)
[2023-11-29] MEDS: AMBIEN 5 MG PO (22:48)
--- NOTE | 2023-11-29 23:50 | PTCARENOTE ---
Tele remains SR, VSS, and sating 95-96% RA. Pt denies any chest discomfort. Patient c/o 'soreness' in the right radial site, Tylenol administered--see MAY. Right radial site soft and dressing intact. Patient aware of activity restrictions. Call dillon
within reach.
[2023-11-30 02:05] VITALS: BP 136/91
[2023-11-30 03:06] VITALS: BMI 33.7
[2023-11-30 03:14] LABS: % Basophils 0.5 % (0-2); % Eosinophils 2.2 % (0-6); % Immature Granulocytes 0.3 % (0-0.5); % Lymphocytes 13.8 % (20.5-51.1); % Neutrophils 76.2 % (42.2-75.2); Absolute Eosinophils 0.2 10^3/uL (0-0.7); Absolute Lymphocytes 1.2 10^3/uL (1.2-3.4); Absolute Monocytes 0.6 10^3/uL (0.1-0.6); Absolute Neutrophils 6.7 10^3/uL (1.4-6.5); Hematocrit 44.7 % (39.0-52.0); Hemoglobin 15.8 g/dL (13.0-18.0); Mean Corp Hgb Conc. 35.3 g/dL (33.0-37.0); Mean Corpuscular Volume 82.2 fL (80.0-94.0); Mean Platelet Volume 10.5 fL (7.4-10.4); Nucleated Red Blood Cells % 0 % (-); Platelet Count 189 10^3/uL (130-400); Red Blood Cell Count 5.44 10^6/uL (4.70-6.10); Red Cell Dist. Width 13.2 % (11.5-14.5); White Blood Cell Count 8.8 10^3/uL (4.8-10.8)
[2023-11-30 03:33] LABS: Blood Urea Nitrogen 16 mg/dl (9-20); Calcium 9.4 mg/dl (8.4-10.2); Carbon Dioxide 22 mmol/L (22-30); Chloride 103 mmol/L (98-107); Estimated Creatinine Clearance 107 ml/min; Glucose 119 mg/dl (70-99); Potassium 3.9 mmol/L (3.5-5.1); Sodium 139 mmol/L (135-145); eGFR > 60.00
--- NOTE | 2023-11-30 06:45 | W.PN.HOSP.TC ---
Today's Communication/Plan
-
Likely discharge
Assessment / Plan
Assessment / Plan
Physical Exam
General: Comfortable and Conversant
HEENT: Anicteric and Moist mucous membranes
Respiratory: Clear and Non Labored Respirations
Cardiac: S1/S2
GI: Soft, Non Tender and Other (Protuberant)
Musculoskeletal: No Clubbing, No Cyanosis and No Edema
Skin: Warm and Dry
Neuro: Awake, Alert, Oriented, he followed commands.
Osych: calm.
# NON ST-elevation DE
Status post successful angioplasty of proximal RCA
Continue with dual antiplatelet platelet therapy with aspirin and ticagrelor for at least 12 months followed by aspirin indefinitely
No chest pain over night.
- Started on statin, LDL 112, TG 180, Total cholesterol 175, hDL 27
- HGB A1C 6.5
Echo showed LVEF 65-70% with no regional wall motion abnormalities.
Appreciate cardiology help
# Obesity BMI 33 with pre-diabetic stage
Parkinson's Disease
-Continue carbidopa/levodopa, entacapone, and rasagiline
Essential Hypertension
-Continue amlodipine and valsartan
Anxiety/Depression/Insomnia
-Continue sertraline and Ambien
DVT proph: Heparin Drip
Code Status: Full Code
Total discharge time spent to see the patient, examine the patient on the floor, review data and lab results, discuss discharge plan with patient, nursing staff around 55 minutes
Anticipated Discharge: Today
Subjective/Interval History
-
Date of Service: November 30, 2023
No chest pain
No sob
Objective Data
-
Labs:
Laboratory Results
11/29/23 11/30/23
12:40 02:22
WBC 8.8
Hgb 15.8
Hct 44.7
Plt Count 189
APTT Cancelled
Sodium 139
Potassium 3.9
Chloride 103
Carbon Dioxide 22
BUN 16
Creatinine 0.8
Glucose 119 H
Calcium 9.4
Vital Signs:
Vital Signs
Temp Pulse Resp BP Pulse Ox
97.6 F 75 18 136/91 96
11/30/23 02:08 11/30/23 05:00 11/30/23 02:08 11/30/23 02:05 11/30/23 02:08
I&O
11/28/23 11/29/23 11/30/23
06:59 06:59 06:59
Intake Total 0 / 0 1220 / 1220
Output Total 250 / 250
Balance -250 / -250 1220 / 1220
[2023-11-30 07:09] VITALS: BP 132/81
--- NOTE | 2023-11-30 07:39 | W.CARD.POSTP ---
Post PCI Follow Up
Procedure
Procedure/Date: 11/29/23
1. Severe radial artery loop requiring balloon assisted tracking for the advancement of a 6 Haitian interventional guide catheter.
2. Right dominant circulation with luminal irregularities in the LAD, a 40% lesion in the medium sized OM 2 and a critical, 90-95% lesion in the proximal RCA with ELISABETH II flow, status post successful PCI (Medtronic Jamal [place] 3.5 x 18 SALBADOR,
postdilated with a 3.5 NC balloon) with reduction in stenosis to 0%, restoring ELISABETH-3 flow.
3. Top normal to mildly elevated filling pressures (LVEDP = 15 mmHg at 99.8 kg).
4. Parkinson's disease.
Subjective: denies cp, sob
Site
Site: Radial: Right and No ht/bleeding, distal pulses palpable (trace ecchymosis)
Tele / EKG
SR no ectopy
Labs
11/30/23 02:22
11/30/23 02:22
PT 13.5 Sec (11.4-14.6) 11/28/23 20:12
INR 1.05 11/28/23 20:12
APTT Cancelled 11/29/23 12:40
Triglycerides 180 mg/dl (10-149) H 11/29/23 06:05
LDL Cholesterol, Calc 112 mg/dl 11/29/23 06:05
VLDL Cholesterol, Calc 36 mg/dl (0-30) H 11/29/23 06:05
HDL Cholesterol 27 mg/dl 11/29/23 06:05
DAPT Medication
DAPT Medication: Aspirin 81mg daily and Tricagrelor 90 mg BID
Case Management checking mcguire: Yes (OK to use the $5 coupon card for brilinta)
Plan
NSTEMI, post PCI RCA
DAPT, statin, BB
f/u apt 12/20 2pm Jailyn Fletcher NP
--- NOTE | 2023-11-30 07:58 | W.PN.CD ---
Today's Communication / Plan
-
Stable for outpatient follow up.
Impression / Plan
-
Impression/Plan: 63-year-old male with hypertension, hyperlipidemia, obesity, former smoking history (1 pack/day x 10 years; quit in 1987), family history of coronary artery disease (father who had MIs and underwent subsequent CABG) presenting with
NSTEMI.
#NSTEMI:
-Acute.
-Troponin peaked at 0.045.
-Cardiac catheterization showed a 90% proximal RCA lesion, now s/p PCI (Medtronic Jamal [place] 3.5 x 18 SALBADOR) with reduction in stenosis to 0%.
-DAPT with aspirin and ticagrelor for at least 12 months, followed by aspirin indefinitely.
-High dose, high potency statin for secondary prevention.
-Continue metoprolol.
-TTE shows normal function.
-Referral to cardiac rehab.
#Hypertension:
-Chronic, stable.
-BP is normal to mildly elevated.
-Continue current doses of amlodipine, metoprolol and losartan.
-BP can be further addressed as an outpatient.
#Hyperlipidemia:
-Chronic, stable.
-Total cholesterol = 175, LDL = 112, HDL = 27, Triglycerides = 180.
-High dose high potency statin.
-Goal LDL < 55, triglycerides < 150.
#Obesity:
-Weight loss and regular exercise recommended.
#PPx
-SCDs for DVT/VTE PPx.
-No role for PPI.
#Dispo
-IVU status.
-Full code.
-Stable for outpatient follow up.
Subjective/Interval History:
PCI of the proximal RCA yesterday, tolerated well.
No acute events overnight.
No subjective complaints.
DATA:
Cardiac Catheterization/PCI, 11/29/2023:
CONCLUSIONS
1. Severe radial artery loop requiring balloon assisted tracking for the advancement of a 6 [place] interventional guide catheter.
2. Right dominant circulation with luminal irregularities in the LAD, a 40% lesion in the medium sized OM 2 and a critical, 90-95% lesion in the proximal RCA with ELISABETH II flow, status post successful PCI (Medtronic [place]ost[place] 3.5 x 18 SALBADOR,
postdilated with a 3.5 NC balloon) with reduction in stenosis to 0%, restoring ELISABETH-3 flow.
3. Top normal to mildly elevated filling pressures (LVEDP = 15 mmHg at 99.8 kg).
4. Parkinson's disease.
TTE, 11/29/2023:
CONCLUSIONS
LV ejection fraction is 65-70%. No regional wall motion abnormalities are seen.
Normal right ventricular size and function.
Aortic sclerosis without stenosis.
No prior study available for comparison.
Physical Exam
Vital Signs/Labs
Vital Signs
Temp Pulse Resp BP Pulse Ox
36.9 C 75 20 136/91 96
11/30/23 07:08 11/30/23 05:00 11/30/23 07:08 11/30/23 02:05 11/30/23 07:08
11/28/23 11/29/23 11/30/23
11:59 11:59 11:59
Actual Weight 99.96 kg 100.6 kg
11/30/23 02:22
11/30/23 02:22
PT 13.5 Sec (11.4-14.6) 11/28/23 20:12
INR 1.05 11/28/23 20:12
APTT Cancelled 11/29/23 12:40
Triglycerides 180 mg/dl (10-149) H 11/29/23 06:05
LDL Cholesterol, Calc 112 mg/dl 11/29/23 06:05
VLDL Cholesterol, Calc 36 mg/dl (0-30) H 11/29/23 06:05
HDL Cholesterol 27 mg/dl 11/29/23 06:05
LAB Results
11/28/23 11/29/23 11/29/23
20:12 02:00 07:40
Troponin I < 0.012 0.022 D 0.045 H* D
11/29/23
13:15
Troponin I 0.033 D
Physical Exam
Constitutional: No acute distress and Comfortable
EENT: Anicteric and Moist mucous membranes
Cardiovascular: Rhythm & rate is regular, Pedal edema is absent, JVD pressure is normal, S1S2 is normal and Murmur/rub/gallop absent
Respiratory: Respiratory effort normal, Lungs clear to auscul., Wheeze Absent, Crackles Absent and Rhonchi Absent
GI: Soft, Distention absent, Flat, Non tender and Normal bowel sounds
Neuro/Psych: AO x 3
Other: Cath Site (Right radial access site is C/D/I.)
Data Reviewed
-
Date of Service: November 30, 2023
Medical Decision Making: Reviewed Test Results, Independent Historian Assessment and Test Interpretation
EKG: Tracing Personally Visualized and interpreted and Report Reviewed by me
Echo: Tracing Personally Visualized and interpreted and Report Reviewed by me
X-Ray/CT/US/MRI/NUC/PET: Image Personally Visualized and interpreted and Report Reviewed by me
Medical Tests (PFT, Pathology etc): Image Personally Visualized and interpreted and Report Reviewed by me
Labs: Labs Reviewed by me
Old Records: Reviewed
[2023-11-30] MEDS: SINEMET 25-100 2 TABLET PO (08:56)
[2023-11-30] MEDS: TYLENOL 650 MG PO (08:56)
[2023-11-30] MEDS: LOW STRENGTH ASPIRIN 81 MG PO (08:56)
[2023-11-30] MEDS: COMTAN 200 MG PO (08:57)
[2023-11-30] MEDS: RASAGILINE MESYLATE 1 MG PO (08:57)
[2023-11-30] MEDS: ZOLOFT 50 MG PO (08:57)
[2023-11-30] MEDS: TOPROL XL 25 MG PO (08:57)
[2023-11-30] MEDS: BRILINTA 90 MG PO (08:57)
[2023-11-30 10:46] VITALS: BP 123/70; BP 144/93
[2023-11-30 10:47] VITALS: BP 123/70
--- NOTE | 2023-11-30 11:38 | W.DCSUMMARY ---
Discharge Summary
Discharge Data
Date of Admission: 11/28/23
Date of Discharge: 11/30/23
-
Pending Results: No
Hospital Course
63 years old male presented with exertional shortness of breath. He developed chest discomfort that was concerning for angina. Initial troponin was negative but later went up to 0.045. EKG showed normal sinus rhythm with nonspecific T wave
abnormalities. Patient was diagnosed with non-ST elevation myocardial infarction. He was evaluated by outside parts sales and underwent left heart catheterization with successful angioplasty of right coronary artery. Patient was started on dual
antiplatelet therapy with aspirin and ticagrelor for 12 months then continue with aspirin indefinitely. He was started on statin therapy and low-dose metoprolol. He tolerated medications well. He remained hemodynamically stable with no chest
pain. Echocardiogram showed left ventricular ejection fraction of 65 to 70%. Patient was discharged home in a stable condition.
Discharge Plan
-
Patient Disposition: Home (Routine Discharge)
Discharge Diagnosis/Procedures: Non- ST elevation [place] s/p Angioplasty and stent to Right Coronary artery
You were started on new medications
- Metoprolol: beta florentino to lower your heart rate and blood pressure. Might cause bradycardia, hypotension, fatigue.
-Ticagrelor and aspirin: anti-platelets to prevent occlusion of the stent. Might cause bruising, bleeding, gastritis.
-Lipitor: statin to lower the cholesterol, Might cause fatigue, muscle pain, myositis, elevated liver enzymes
You will need to follow with your primary care doctor to monitor your vital signs and blood work.
Diet: Low Fat
Driving Restrictions: No driving for 24 hours
Other Services: Cardiac Rehab
Stand Alone Forms: DC Instructions- Cath/EP Lab
Referrals:
[facility]. Cardiac Rehab [Outside] - 01/03/24 1:00 pm
(Cardiac Rehab Orientation appointment is on 01/03/2024 at 1 PM.
The Cardiac Rehab gym is located on the first floor of the [facility].)
Jessika Fletcher NP [Specified Professional Personl] - 12/21/23 2:00 pm (Cardiology followup appointment)
Joseph Glass DO [Family Provider] - in one to two weeks
Prescriptions:
New
Brilinta 90 mg Tablet
90 mg PO BID Qty: 60 0RF
atorvastatin 40 mg Tablet
40 mg PO QPM Qty: 30 0RF
aspirin 81 mg Tablet,Chewable
81 mg PO DAILY Qty: 30 0RF
metoprolol succinate 25 mg Tablet Extended Release 24 Hr
25 mg PO DAILY Qty: 30 0RF
Continued
sildenafil 100 mg tablet
100 mg PO DAILYPRN PRN (Reason: ED)
entacapone 200 mg tablet
200 mg PO QID
zolpidem 5 mg tablet
5 mg PO HS
Patient Comments:
11/28/2023: last filled 11/10/23, 90 tabs for 90 days
carbidopa-levodopa 25-100 mg tablet
2 tab PO BID@0800,1200
carbidopa-levodopa 25-100 mg tablet
1 tab PO BID@1600,2000
sertraline 50 mg tablet
50 mg PO DAILY
rasagiline 1 mg tablet
1 mg PO DAILY
amlodipine-valsartan 5-160 mg tablet
1 tab PO HS
Discharge Orders:
Discharge Patient (As Directed); Ordered 11/30/23
Ordered By: Rosaura Sanders
Care Plan Goals
Care Plan Goals:
Problem: Readiness for enhanced knowledge related to diagnosis and treatment plan
Goal: Understand your diagnosis and treatment plan needs, including medications if applicable.
Instructions: Know your diagnosis, underlying causes and treatment plan options, including medications if applicable. Consult with your health care team to learn about your diagnosis and treatment plan, including medications if applicable.
Discharge Date and Time
Print Language: [place]
--- NOTE | 2023-11-30 12:38 | PTCARENOTE ---
Pt seen by . Telemetry and IV device removed. Discharge instructions reviewed with pt regarding activity and driving guidelines, wound care, medications and their possible side effects, reporting cares and concerns and follow up appt's.
Very good understanding verbalized. Pt escorted out via wheelchair and discharged to home.
== END 2023-11-30 11:30 | disposition home or self-care (01) | DRG 322 ==
LOC: IVU 23:04
PROVIDERS: Emergency Medicine; Internal Medicine Cardiovascular Disease; Nurse Practitioner; Physician Assistant Medical; ADMITTING PHYSICIAN Internal Medicine; ATTENDING PHYSICIAN Internal Medicine; CONSULT PHYSICIAN Internal Medicine; EMERGENCY PHYSICIAN Emergency Medicine; FAMILY PHYSICIAN Family Medicine
PROC: 4A023N7 Measurement of Cardiac Sampling and Pressure, Left Heart, Percutaneous Approach (ICD-10-PCS; 2023-11-29)
PROC: B240ZZ3 Ultrasonography of Single Coronary Artery, Intravascular (ICD-10-PCS; 2023-11-29)
PROC: B211YZZ Fluoroscopy of Multiple Coronary Arteries using Other Contrast (ICD-10-PCS; 2023-11-29)
PROC: 027034Z Dilation of Coronary Artery, One Artery with Drug-eluting Intraluminal Device, Percutaneous Approach (ICD-10-PCS; 2023-11-29)
DX: I21.4 Non-ST elevation (NSTEMI) myocardial infarction (principal); I25.10 Atherosclerotic heart disease of native coronary artery without angina pectoris; G20.A1 Parkinson's disease without dyskinesia, without mention of fluctuations; I10 Essential (primary) hypertension; E78.00 Pure hypercholesterolemia, unspecified; F32.A Depression, unspecified; F41.9 Anxiety disorder, unspecified; G47.00 Insomnia, unspecified; R73.03 Prediabetes; E66.9 Obesity, unspecified; Z68.33 Body mass index [BMI] 33.0-33.9, adult; Z87.891 Personal history of nicotine dependence; Z82.49 Family history of ischemic heart disease and other diseases of the circulatory system; Z79.899 Other long term (current) drug therapy
CPT/HCPCS: 71046; 80048; 80053; 80061; 83036; 84484; 85025; 85027; 85347; 85610; 85730; 92978; 93005; 93306; 93458; 99285; C1725; C1753; C1769; C1874; C1894; C9600; Q9967

== ENCOUNTER 2024-01-03 16:14 | Outpatient (RCR) | payer BC, MEDICARE, SELFPAY | END 2024-01-03 23:59 | disposition home or self-care (01) | LOC: CRHB 16:14 | PROVIDERS: ATTENDING PHYSICIAN Internal Medicine | DX: I25.10 Atherosclerotic heart disease of native coronary artery without angina pectoris (principal); Z95.5 Presence of coronary angioplasty implant and graft; I25.2 Old myocardial infarction | CPT/HCPCS: 93798 ==

== ENCOUNTER 2024-02-07 09:41 | Outpatient (RCR) | payer BC, MEDICARE, SELFPAY | END 2024-02-07 23:59 | disposition home or self-care (01) | LOC: CRHB 09:41 | PROVIDERS: ATTENDING PHYSICIAN Internal Medicine | DX: Z95.5 Presence of coronary angioplasty implant and graft (principal); I25.10 Atherosclerotic heart disease of native coronary artery without angina pectoris; I21.4 Non-ST elevation (NSTEMI) myocardial infarction | CPT/HCPCS: 93797; 93798 ==

== ENCOUNTER 2024-03-04 10:16 | Outpatient (RCR) | payer BC, MEDICARE, SELFPAY | END 2024-03-04 23:59 | disposition home or self-care (01) | LOC: CRHB 10:16 | PROVIDERS: ATTENDING PHYSICIAN Internal Medicine | DX: I25.2 Old myocardial infarction (principal); I25.10 Atherosclerotic heart disease of native coronary artery without angina pectoris; Z95.5 Presence of coronary angioplasty implant and graft | CPT/HCPCS: 93797; 93798 ==

== ENCOUNTER 2024-05-22 17:15 | Emergency (ER) | payer BC, MEDICARE, SELFPAY ==
[2024-05-22 17:17] VITALS: BP 135/85
[2024-05-22 17:51] LABS: % Basophils 0.4 % (0-2); % Immature Granulocytes 0.3 % (0-0.5); % Lymphocytes 19.3 % (20.5-51.1); % Monocytes 7.1 % (1.7-9.3); % Neutrophils 71.9 % (42.2-75.2); Absolute Eosinophils 0.1 10^3/uL (0-0.7); Absolute Lymphocytes 1.4 10^3/uL (1.2-3.4); Absolute Monocytes 0.5 10^3/uL (0.1-0.6); Absolute Neutrophils 5.1 10^3/uL (1.4-6.5); Hematocrit 46.1 % (39.0-52.0); Hemoglobin 15.6 g/dL (13.0-18.0); Mean Corp Hgb Conc. 33.8 g/dL (33.0-37.0); Mean Corpuscular Hgb 29.4 pg (27.0-31.0); Mean Platelet Volume 10.2 fL (7.4-10.4); Nucleated Red Blood Cells % 0 % (-); Platelet Count 170 10^3/uL (130-400); Red Cell Dist. Width 13.2 % (11.5-14.5); White Blood Cell Count 7.1 10^3/uL (4.8-10.8)
[2024-05-22 18:02] LABS: ALT (SGPT) < 10 U/L (0-50); AST (SGOT) 23 U/L (17-59); Albumin 4.8 g/dl (3.5-5.0); Alkaline Phosphatase 52 U/L (38-126); Blood Urea Nitrogen 19 mg/dl (9-20); Calcium 9.6 mg/dl (8.4-10.2); Carbon Dioxide 26 mmol/L (22-30); Chloride 103 mmol/L (98-107); Glucose 151 mg/dl (70-99); Potassium 4.3 mmol/L (3.5-5.1); Sodium 137 mmol/L (135-145); Total Bilirubin 1.7 mg/dl (0.2-1.3); Total Protein 7.3 g/dl (6.3-8.2); eGFR > 60.00
[2024-05-22 18:03] LABS: INR 1.08; PT 14.5 Sec (11.4-14.6)
[2024-05-22 18:14] LABS: Troponin I 0.013 ng/ml
[2024-05-22 19:00] VITALS: BP 130/85
[2024-05-22 19:24] VITALS: BMI 33.3
[2024-05-22 20:00] VITALS: BP 128/80
[2024-05-22 20:12] LABS: Troponin I 0.017 ng/ml
--- NOTE | 2024-05-22 20:15 | ED.GENMED ---
History of Present Illness
General
Chief Complaint: Chest Pain
Time Seen by Provider: 05/22/24 18:37
History of Present Illness
History of Present Illness:
63-year-old male with history of CAD status post stent in November 2023 presents the emergency department for evaluation of exertional chest pain has been ongoing for the past 2 days. Was seen at [facility] last night and
discharged after labs are normal. States symptoms are quite similar to his past NSTEMI in November. He walked up a flight of stairs today and had 10 out of 10 pain but pain resolves at rest. No pain currently. He has been compliant with his
medications post stenting.
Review of Systems
Review of Systems
Allergies reviewed?: Yes
All Other Systems: ROS reviewed and negative except as documented in HPI and ROS
Phy Exam
Physical Exam
Physical Exam:
GEN: Well appearing, NAD, WDWN
HEENT: Oral mucosa moist, no scleral icterus
Cardiac: Regular rate and rhythm, no murmurs
Lung: No respiratory distress, no tachypnea, lungs clear to auscultation bilaterally
MSK: No gross deformity or injuries
Skin: Good color, no pallor or jaundice, no rashes
Neuro: AO x3, moves all extremities freely
Psych: Calm, cooperative
Scores
Heart Score for Chest Pain Patients
STEMI patient?: No
History: Highly Suspicious
ECG: Normal
Age: >/= 65 years
Risk Factors: >/= 3 Risk Factors or History of CAD
Troponin: >1 - <3 x Normal Limit
Heart Score for Chest Pain Patients: 7
Heart Score Risk: 72.7 % MACE over next 6 weeks
Course
Orders/Labs/Results
Orders:
Orders
05/22/24 17:16
Electrocardiogram (*1) Urgent
Reason for Study: Chest Pain
EKG- Treatment ONCE
05/22/24 17:36
Complete Blood Count/With Diff Urgent
Comprehensive Metabolic Panel Urgent
Prothrombin Time Urgent
Troponin I Urgent
05/22/24 19:08
EKG- Treatment ONCE
05/22/24 19:30
Electrocardiogram (*1) Urgent
Reason for Study: Chest Pain
05/22/24 19:35
Troponin I Urgent
Abnormal Lab Results
05/22/24
17:36
Lymphocytes % 19.3 L %
(20.5-51.1)
Glucose 151 H mg/dl
(70-99)
Total Bilirubin 1.7 H mg/dl
(0.2-1.3)
05/22/24 17:36
05/22/24 17:36
Vital Signs
Initial and Last Documented VS:
Initial Vital Signs
Temp Pulse Resp BP Pulse Ox
98.2 F 81 16 135/85 99
05/22/24 17:17 05/22/24 17:17 05/22/24 17:17 05/22/24 17:17 05/22/24 17:17
Last Documented Vital Signs
Temp Pulse Resp BP Pulse Ox
98.2 F 72 16 128/80 95
05/22/24 17:17 05/22/24 20:00 05/22/24 20:00 05/22/24 20:00 05/22/24 20:00
MDM/Problems Addressed
MDM/Problems Addressed:
Initial troponin reassuring, repeat troponin with marginal uptrending however patient remains pain-free at rest. Case was discussed with cardiology who encourages that we start the patient on long-acting nitrates, 30 mg Imdur. He is encouraged not
to use his sildenafil during this time. Will refer to cardiology for close follow-up through the chest pain hotline
*Critical Care Note
Total Time (30-74mins, 75-104mins- exclusive of procedures): Not Applicable
ED Attending Note
-
Portions of this chart may have been created with voice recognition software.� Occasional wrong word or��sound alike� substitutions may have occurred due to the inherent limitations of voice recognition software.
Discharge Plan
Departure
Patient Disposition: Home (Routine Discharge)
Date of Disposition: 05/22/24
Time of Disposition: 20:15
Patient with high blood pressure during this ER visit?: No
Discharge Problem:
Stable angina
Instructions: Chest Pain CBC Follow Up
Prescriptions:
New
isosorbide mononitrate 30 mg tablet extended release 24 hr
30 mg PO DAILY Qty: 30 0RF
No Action
sildenafil 100 mg tablet
100 mg PO DAILYPRN PRN (Reason: ED)
entacapone 200 mg tablet
200 mg PO QID
zolpidem 5 mg tablet
5 mg PO HS
Patient Comments:
11/28/2023: last filled 11/10/23, 90 tabs for 90 days
carbidopa-levodopa 25-100 mg tablet
2 tab PO BID@0800,1200
carbidopa-levodopa 25-100 mg tablet
1 tab PO BID@1600,2000
sertraline 50 mg tablet
50 mg PO DAILY
rasagiline 1 mg tablet
1 mg PO DAILY
amlodipine-valsartan 5-160 mg tablet
1 tab PO HS
Brilinta 90 mg Tablet
90 mg PO BID Qty: 60 0RF
atorvastatin 40 mg Tablet
40 mg PO QPM Qty: 30 0RF
metoprolol succinate 25 mg Tablet Extended Release 24 Hr
25 mg PO DAILY Qty: 30 0RF
aspirin 81 mg Capsule
81 mg PO DAILY
cholecalciferol (vitamin D3) [Vitamin D3] 50 mcg (2,000 unit) Tablet
50 mcg PO DAILY
Referrals:
Joseph Glass DO [Family Provider] -
Activity Restrictions/Additional Instructions:
DO NOT USE YOUR SILDENAFIL until discussion with your cannery worker
Interventions
Interventions:
*Risk Screen - Suicide Last Done: 05/22/24 17:17
*General Assessment Last Done: 05/22/24 19:24
*Neglect/Abuse Screening Last Done: 05/22/24 17:17
*ED- Fall Risk Assessment Last Done: 05/22/24 19:24
*ED COVID-19 Vaccine History Last Done: 05/22/24 19:24
*Nursing Disposition Last Done: 05/22/24 20:25
ED- Cardiac Assessment Last Done: 05/22/24 19:38
Discharge Date and Time
Discharge Date/Time: 05/22/24 20:25
Print Language: [email or web address]
== END 2024-05-22 20:25 | disposition home or self-care (01) ==
LOC: EMR 17:15
PROVIDERS: Physician Assistant; EMERGENCY PHYSICIAN Emergency Medicine; FAMILY PHYSICIAN Family Medicine; REFERRING PHYSICIAN Internal Medicine Cardiovascular Disease
DX: I25.118 Atherosclerotic heart disease of native coronary artery with other forms of angina pectoris (principal); I25.2 Old myocardial infarction; Z95.5 Presence of coronary angioplasty implant and graft
CPT/HCPCS: 99284; 80053; 84484; 85025; 85610; 93005